=== PATIENT | female | born 2000 | race Two or more races ===

== ENCOUNTER 2022-10-31 04:25 | Emergency (ER) | payer MEDICAID ==
[~2022-10-31] VITALS: Ht 5.1 cm; Wt 75.0 kg
[2022-10-31 04:39] VITALS: BP 137/78
[2022-10-31] MEDS ORDERED: SODIUM CHLORIDE 0.9% 1,000 ML IV ONE ×2 (04:45)
[2022-10-31] MEDS ORDERED: levETIRAcetam 500 MG/5ML INJ IV ONE (05:49)
[2022-10-31] MEDS ORDERED: THIAMINE 100mg/ml INJ (200mg/2ml VIAL) IV ONE (06:30)
== END 2022-10-31 07:03 | disposition left against medical advice (07) ==
LOC: ER 04:25
DX: R56.9 Unspecified convulsions (principal)
CPT/HCPCS: 96361; 96374; 99284; J1953; J7030; J7060

== ENCOUNTER 2022-12-13 20:56 | Emergency (ER) | payer SELFPAY | END 2022-12-13 23:20 | disposition left against medical advice (07) | LOC: ER 20:56 | DX: R53.1 Weakness (principal); Z53.21 Procedure and treatment not carried out due to patient leaving prior to being seen by health care provider ==